=== PATIENT | male | born 1970 | race Hispanic/Latino ===

== ENCOUNTER 2019-10-26 | Emergency (ER) | payer SELFPAY ==
[2019-10-26] MEDS ORDERED: KEFLEX500 MG PO (10:49)
[2019-10-26] MEDS ORDERED: TRAMADOL HYDROC50 MG PO (10:49)
== END 2019-10-26 11:00 | disposition home or self-care (01) | DRG 603 ==
DX: L03.116 Cellulitis of left lower limb (principal); S80.262A Insect bite (nonvenomous), left knee, initial encounter; E11.9 Type 2 diabetes mellitus without complications; W57.XXXA Bitten or stung by nonvenomous insect and other nonvenomous arthropods, initial encounter